=== PATIENT | female | born 1970 | race African-American/Black ===

== ENCOUNTER 2018-05-02 13:48 | Emergency (ER) | payer OTHER ==
[~2018-05-02] VITALS: Ht 160 cm; Wt 70.3 kg
[2018-05-02 14:59] VITALS: BP 130/62
[2018-05-02] MEDS ORDERED: NAPROXEN 500 MG TABLET PO STA (14:59)
[2018-05-02] MEDS ORDERED: GABAPENTIN 300 MG CAPSULE. PO STA (15:23)
--- NOTE | 2018-05-02 15:29 | PHYS DOC ---
Past Medical History Past Medical History: No Pertinent History Past Surgical History: No Surgical History Alcohol Use: None Drug Use: None Adult General Chief Complaint Chief Complaint: FINGER INJURY HPI HPI Patient is a 47 year old female with no significant medical history who presents today complaining of 9 out of 10 sharp and throbbing intermittent left middle finger pain that began yesterday. Patient denies any known swelling. She states she feels the finger is swollen. She states the pain is worse on flexion of the finger. Patient denies taking anything for her pain. Patient is right- handed. Review of Systems Review of Systems Constitutional: Denies fever or chills [] Musculoskeletal: Reports left middle finger pain and swelling. Integument: Denies rash or skin lesions [] Neurologic: Denies headache, focal weakness or sensory changes [] All other systems were reviewed and found to be within normal limits, except as documented in this note. Current Medications Current Medications Current Medications Medications (Trade) Dose Ordered Sig/Rajiv Start Time Stop Time Status Last Admin Dose Admin Acetaminophen/ Hydrocodone Bitart (Lortab 5/325) 1 tab 1X ONCE 05/02/18 15:30 05/02/18 15:31 DC 05/02/18 15:38 1 TAB Gabapentin (Neurontin) 300 mg 1X STAT 05/02/18 15:23 05/02/18 15:24 DC 05/02/18 15:38 300 MG Naproxen (Naprosyn) 500 mg 1X STAT 05/02/18 14:59 05/02/18 15:00 DC 05/02/18 15:06 500 MG Allergies Allergies Allergies Coded Allergies Type Severity Reaction Last Updated Verified No Known Drug Allergies 05/02/18 No Physical Exam Physical Exam Constitutional: Well developed, well nourished, no acute distress, non-toxic appearance. [] Skin: Warm, dry, no erythema, no rash. [] Back: No tenderness, no CVA tenderness. [] Extremities: Left middle finger with slight angulation at the PIP joint- chronic. Soft tissue swelling noted diffusely throughout the left middle finger. No tenderness on palpation of the finger. Pain elicited with range of motion especially flexion of the finger at the MIP joint. Adequate radial and media sensation to the left middle finger. +2 right radial pulse. Cap refill less than 2 seconds the left middle finger. Neurologic: Alert and oriented X 3, normal motor function, normal sensory function, no focal deficits noted. [] Psychologic: Affect normal, judgement normal, mood normal. [] Current Patient Data Vital Signs Vital Signs Date Time Temp Pulse Resp B/P (MAP) Pulse Ox O2 Delivery O2 Flow Rate FiO2 05/02/18 14:59 98.6 69 16 130/62 (84) 98 Room Air 98.6 EKG EKG [] Radiology/Procedures Radiology/Procedures []PROCEDURE: FINGER(S) LEFT History: Pain swelling of the 3rd digit beginning previous day. No known injury. Comparison: None. Findings: PA view left hand. Oblique and lateral views of the 3rd digit left hand (middle finger). No acute fracture or dislocation is identified. There is slight apex radial angulation of the 3rd PIP joint on the frontal image, of uncertain etiology or significance. Impression: 1. Mild angulation at the 3rd PIP joint. 2. No acute osseous traumatic injury identified. Electronically signed by: Mansoor Timmons MD (05/02/2018 3:33 PM) [id number] DICTATED and SIGNED BY: MANSOOR TIMMONS MD DATE: 05/02/18 1532 Course & Med Decision Making Course & Med Decision Making Pertinent Labs and Imaging studies reviewed. (See chart for details) This is a 47-year-old female patient presenting to the ED today with left middle finger pain and swelling, no known injury. Left middle finger x-rays interpreted by radiologist were negative for any acute findings, noted for mild angulation at the 3rd PIP joint. Patient was placed in a splint by the ED RN, neurovascular exam is intact, ice elevation encouraged. Diclofenac for pain. Provided orthopedic doctor for follow-up as an outpatient. Staff Physician Addendum: I was working in the ER during the course of this patient's visit. I was available for consultation as needed, but I was not directly involved in the care of this patient. Dragon Disclaimer Dragon Disclaimer This electronic medical record was generated, in whole or in part, using a voice recognition dictation system. Departure Departure Impression: Primary Impression: Finger pain, left Disposition: 01 HOME, SELF-CARE Condition: STABLE Referrals: RUPAL AMES MD (PCP) follow up in one week SALLIE HANKINS II, MD follow up in one week Patient Instructions: Finger Sprain Additional Instructions: You were evaluated in the emergency room for finger pain and swelling. Your x- rays were negative for any fractures. We put you in a splint. Ice and elevate the extremity. Follow-up with the provided orthopedic doctor in 1-2 weeks as needed. Scripts Diclofenac Sodium (DICLOFENAC SODIUM) 50 Mg Tablet.dr 1 TAB PO BID, #30 TAB 0 Refills Prov: MEHRAN ARTHUR APRN 05/02/18 MEHRAN ARTHUR APRN May 02, 2018 15:29 ANABELLE GABRIEL MD May 02, 2018 17:33
[2018-05-02] MEDS ORDERED: HYDROcodone/APAP 5/325MG 1 TAB TABLET PO ONE (15:30)
--- NOTE | 2018-05-02 15:36 | RAD ---
History: Pain swelling of the 3rd digit beginning previous day. No known injury. Comparison: None. Findings: PA view left hand. Oblique and lateral views of the 3rd digit left hand (middle finger). No acute fracture or dislocation is identified. There is slight apex radial angulation of the 3rd PIP joint on the frontal image, of uncertain etiology or significance. Impression: 1. Mild angulation at the 3rd PIP joint. 2. No acute osseous traumatic injury identified. Electronically signed by: Mansoor Zambrano MD (05/02/2018 3:33 PM) [place] [id number]
[2018-05-02] MEDS ORDERED: DICL50TA4 PO (15:49)
== END 2018-05-02 16:00 | disposition home or self-care (01) ==
LOC: ER 13:48
DX: M79.645 Pain in left finger(s) (principal); R22.32 Localized swelling, mass and lump, left upper limb
CPT/HCPCS: 29130; 73140; 99284-25

== ENCOUNTER 2018-10-30 09:24 | Emergency (ER) | payer OTHER ==
[~2018-10-30] VITALS: Ht 160 cm; Wt 72.6 kg
[~2018-10-30 09:24] MED LIST: DICL50TA4 PO
[2018-10-30 09:37] VITALS: BP 140/65
[2018-10-30 10:09] LABS: BILIRUBIN,URINE NEGATIVE (NEG); CLARITY,URINE CLEAR; COLOR,URINE YELLOW; NITRITE,URINE NEGATIVE (NEG); PH,URINE 6.5; PROTEIN,URINE NEGATIVE (NEG-TRACE); UROBILINOGEN,URINE 0.2 mg/dL (0.2 mg/dL)
[2018-10-30 10:11] LABS: BASO % 1 % (0-3); CALCIUM 9.4 mg/dL (8.5-10.1); CREATININE 0.9 mg/dL (0.6-1.0); EOS # 0.2 x10^3/uL (0.0-0.7); EOS % 4 % (0-3); GFR 66.5; HEMATOCRIT 40.1 % (36.0-47.0); LYMPH # 1.9 x10^3/uL (1.0-4.8); LYMPH % 47 % (24-48); MEAN CORPUSCULAR HEMOGLOBIN 26 pg (25-35); MEAN CORPUSCULAR HGB CONC 32 g/dL (31-37); MEAN CORPUSCULAR VOLUME 81 fL (79-100); MONO # 0.3 x10^3/uL (0.0-1.1); MONO % 7 % (0-9); NEUT # 1.7 x10^3uL (1.8-7.7); NEUT % 42 % (31-73); PLATELET COUNT 219 x10^3/uL (140-400); POTASSIUM 4.2 mmol/L (3.5-5.1); RED BLOOD COUNT 4.97 x10^6/uL (3.50-5.40); RED CELL DISTRIBUTION WIDTH 13.5 % (11.5-14.5)
[2018-10-30] MEDS ORDERED: IV NORMAL SALINE 1000ML BAG 1,000 ML IV ONE ×3 (10:15)
[2018-10-30 10:18] LABS: ALBUMIN 4.1 g/dL (3.4-5.0); ALBUMIN/GLOBULIN RATIO 1.3 (1.0-1.7); MAGNESIUM 1.8 mg/dL (1.8-2.4); TOTAL BILIRUBIN 0.2 mg/dL (0.2-1.0); TOTAL PROTEIN 7.2 g/dL (6.4-8.2)
[2018-10-30 10:26] LABS: BACTERIA,URINE 0 /HPF (0-FEW); RBC,URINE 0 /HPF (0-2); SQUAMOUS EPITHELIAL CELL,UR FEW /LPF
--- NOTE | 2018-10-30 10:38 | RAD ---
CT head and cervical spine without contrast History: Neck pain, headache, syncope last night Technique: Noncontrast CT imaging was acquired of the head and cervical spine, multiplanar reconstruction images submitted. RS Compliance Statement: One or more of the following individualized dose reduction techniques were utilized for this examination: 1. Automated exposure control 2. Adjustment of the mA and/or kV according to patient size 3. Use of iterative reconstruction technique Comparison: None Head Findings: The ventricles, sulci, and cisterns are within normal limits in size and configuration. There is no significant mass-effect, midline shift, or abnormal extra-axial fluid collection. There is no evidence of acute parenchymal or extraaxial hemorrhage. The visualized paranasal sinuses and mastoid air cells are aerated. No significant osseous abnormality is identified. There are genny bullosa bilaterally. Impression: There is no evidence of an acute intracranial abnormality. Cervical spine: Findings: Cervical vertebral body stature is maintained. Intervertebral disc spaces are maintained. There are anterior osteophytes C5. Atlantoaxial distance is within normal limits. There is adequate alignment lateral masses C1 relative to C2. Occipital condylar C1 articulation is maintained. No acute cervical spine fracture is identified. There is some minimal gas in the right lateral aspect of the spinal canal near C1 and also in the veins of the left neck as may be advertently iatrogenic such as from recent IV placement if corresponding history. Impression 1. No acute cervical spine fracture is identified.
--- NOTE | 2018-10-30 11:16 | PHYS DOC ---
Past Medical History Past Medical History: No Pertinent History Past Surgical History: No Surgical History Alcohol Use: None Drug Use: None Adult General Chief Complaint Chief Complaint: WEAKNESS/GENERALIZED HPI HPI Patient is a 48 year old female who presents to ER today for evaluation of general weakness. Patient says she got up earlier this morning to pray. She was feeling weak and tired, she felt like she lost all of her energy, she felt spent, she then fell down while she was on her knees, and hit her head on the ground, no loss of consciousness. Patient denies any other injury, no chest pain, no trouble breathing, no abdominal pain, no back pain. She felt some heart palpitation at that time but no chest pain. She denies any medical problem, she is not on any medication. She denies any recent travel, no recent operation. Her daughter is here for other medical condition. Review of Systems Review of Systems Constitutional: Denies fever or chills. Positive for generalized weakness. Eyes: Denies change in visual acuity, redness, or eye pain [] HENT: Denies nasal congestion or sore throat [] Respiratory: Denies cough or shortness of breath [] Cardiovascular: No additional information not addressed in HPI [] GI: Denies abdominal pain, nausea, vomiting, bloody stools or diarrhea [] : Denies dysuria or hematuria [] Musculoskeletal: Denies back pain or joint pain [] Integument: Denies rash or skin lesions [] Neurologic: Positive for headache, NO focal weakness or sensory changes [] Endocrine: Denies polyuria or polydipsia [] All other systems were reviewed and found to be within normal limits, except as documented in this note. Current Medications Current Medications Current Medications Medications (Trade) Dose Ordered Sig/[facility] Start Time Stop Time Status Last Admin Dose Admin Sodium Chloride 1,000 ml @ 1,000 mls/hr 1X ONCE 10/30/18 10:15 10/30/18 11:14 DC Allergies Allergies Allergies Coded Allergies Type Severity Reaction Last Updated Verified No Known Drug Allergies 05/02/18 No Physical Exam Physical Exam Constitutional: Well developed, well nourished, no acute distress, non-toxic appearance. [] HENT: Normocephalic, atraumatic, bilateral external ears normal, oropharynx moist, no oral exudates, nose normal. [] Eyes: PERRLA, EOMI, conjunctiva normal, no discharge. [] Neck: Normal range of motion, no tenderness, supple, no stridor. [] Cardiovascular:Heart rate regular rhythm, no murmur [] Lungs & Thorax: Bilateral breath sounds clear to auscultation [] Abdomen: Bowel sounds normal, soft, no tenderness, no masses, no pulsatile masses. [] Skin: Warm, dry, no erythema, no rash. [] Back: No tenderness, no CVA tenderness. [] Extremities: No tenderness, no cyanosis, no clubbing, ROM intact, no edema. [] Neurologic: Alert and oriented X 3, normal motor function, normal sensory function, no focal deficits noted. [] Psychologic: Affect normal, judgement normal, mood normal. [] Current Patient Data Vital Signs Vital Signs Date Time Temp Pulse Resp B/P (MAP) Pulse Ox O2 Delivery O2 Flow Rate FiO2 10/30/18 09:37 97.4 64 16 140/65 (90) 98 Room Air 97.4 Lab Values Laboratory Tests Test 10/30/18 09:35 10/30/18 09:47 Urine Collection Type Unknown Urine Color Yellow Urine Clarity Clear Urine pH 6.5 Urine Specific [place] 1.010 Urine Protein Negative mg/dL (NEG-TRACE) Urine Glucose (UA) Negative mg/dL (NEG) Urine Ketones (Stick) Negative mg/dL (NEG) Urine Blood Negative (NEG) Urine Nitrite Negative (NEG) Urine Bilirubin Negative (NEG) Urine Urobilinogen Dipstick 0.2 mg/dL (0.2 mg/dL) Urine Leukocyte Esterase Trace (NEG) Urine RBC 0 /HPF (0-2) Urine WBC 1-4 /HPF (0-4) Urine Squamous Epithelial Cells Few /LPF Urine Bacteria 0 /HPF (0-FEW) White Blood Count 4.0 x10^3/uL (4.0-11.0) Red Blood Count 4.97 x10^6/uL (3.50-5.40) Hemoglobin 13.0 g/dL (12.0-15.5) Hematocrit 40.1 % (36.0-47.0) Mean Corpuscular Volume 81 fL (79-100) Mean Corpuscular Hemoglobin 26 pg (25-35) Mean Corpuscular Hemoglobin Concent 32 g/dL (31-37) Red Cell Distribution Width 13.5 % (11.5-14.5) Platelet Count 219 x10^3/uL (140-400) Neutrophils (%) (Auto) 42 % (31-73) Lymphocytes (%) (Auto) 47 % (24-48) Monocytes (%) (Auto) 7 % (0-9) Eosinophils (%) (Auto) 4 % (0-3) H Basophils (%) (Auto) 1 % (0-3) Neutrophils # (Auto) 1.7 x10^3uL (1.8-7.7) L Lymphocytes # (Auto) 1.9 x10^3/uL (1.0-4.8) Monocytes # (Auto) 0.3 x10^3/uL (0.0-1.1) Eosinophils # (Auto) 0.2 x10^3/uL (0.0-0.7) Basophils # (Auto) 0.0 x10^3/uL (0.0-0.2) Sodium Level 146 mmol/L (136-145) H Potassium Level 4.2 mmol/L (3.5-5.1) Chloride Level 109 mmol/L (98-107) H Carbon Dioxide Level 26 mmol/L (21-32) Anion Gap 11 (6-14) Blood Urea Nitrogen 9 mg/dL (7-20) Creatinine 0.9 mg/dL (0.6-1.0) Estimated GFR (Cockcroft-Gault) 66.5 BUN/Creatinine Ratio 10 (6-20) Glucose Level 90 mg/dL (70-99) Calcium Level 9.4 mg/dL (8.5-10.1) Magnesium Level 1.8 mg/dL (1.8-2.4) Total Bilirubin 0.2 mg/dL (0.2-1.0) Aspartate Amino Transferase (AST) 20 U/L (15-37) Alanine Aminotransferase (ALT) 17 U/L (14-59) Alkaline Phosphatase 70 U/L (46-116) Troponin I Quantitative < 0.017 ng/mL (0.000-0.055) Total Protein 7.2 g/dL (6.4-8.2) Albumin 4.1 g/dL (3.4-5.0) Albumin/Globulin Ratio 1.3 (1.0-1.7) Laboratory Tests 10/30/18 09:47 Laboratory Tests 10/30/18 09:47 EKG EKG EKG WAS READ BY THIS PHYSICIAN AT 10AM, RATE OF 57 BPM, SINUS BRADYCARDIA, NO STEMI. Radiology/Procedures Radiology/Procedures [][facility] [address] [place] [address] IMAGING REPORT Signed PATIENT: JIMMY VARELA ACCOUNT: [id number] : 1970 LOCATION: ER AGE: 48 SEX: F EXAM STATUS: REG ER ORD. PHYSICIAN: LIOR RENDON DO REASON: had a syncope last night, headache, neck pain PROCEDURE: CT HEAD AND CERVICAL SPINE WO CT head and cervical spine without contrast History: Neck pain, headache, syncope last night Technique: Noncontrast CT imaging was acquired of the head and cervical spine, multiplanar reconstruction images submitted. PQRS Compliance Statement: One or more of the following individualized dose reduction techniques were utilized for this examination: 1. Automated exposure control 2. Adjustment of the mA and/or kV according to patient size 3. Use of iterative reconstruction technique Comparison: None Head Findings: The ventricles, sulci, and cisterns are within normal limits in size and configuration. There is no significant mass-effect, midline shift, or abnormal extra-axial fluid collection. There is no evidence of acute parenchymal or extraaxial hemorrhage. The visualized paranasal sinuses and mastoid air cells are aerated. No significant osseous abnormality is identified. There are genny bullosa bilaterally. Impression: There is no evidence of an acute intracranial abnormality. Cervical spine: Findings: Cervical vertebral body stature is maintained. Intervertebral disc spaces are maintained. There are anterior osteophytes C5. Atlantoaxial distance is within normal limits. There is adequate alignment lateral masses C1 relative to C2. Occipital condylar C1 articulation is maintained. No acute cervical spine fracture is identified. There is some minimal gas in the right lateral aspect of the spinal canal near C1 and also in the veins of the left neck as may be advertently iatrogenic such as from recent IV placement if corresponding history. Impression 1. No acute cervical spine fracture is identified. DICTATED and SIGNED BY: ALEXIA WHITTINGTON MD DATE: 10/30/18 1025 Course & Med Decision Making Course & Med Decision Making Pertinent Labs and Imaging studies reviewed. (See chart for details) [] Dragon Disclaimer Dragon Disclaimer This electronic medical record was generated, in whole or in part, using a voice recognition dictation system. Departure Departure Impression: Primary Impression: Weakness Disposition: 01 HOME, SELF-CARE Condition: IMPROVED Referrals: UNKNOWN PCP NAME (PCP) FOLLOW UP WITH YOUR DOCTOR ON WEDNESDAY FOR REEVALUATION. Patient Instructions: LIOR Asif DO Oct 30, 2018 11:16
--- NOTE | 2018-10-31 07:28 | EKG ---
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
== END 2018-10-30 11:55 | disposition home or self-care (01) ==
LOC: ER 09:24
DX: S09.90XA Unspecified injury of head, initial encounter (principal); R53.1 Weakness; R55 Syncope and collapse; M54.2 Cervicalgia; W18.39XA Other fall on same level, initial encounter; Y93.89 Activity, other specified; Y92.89 Other specified places as the place of occurrence of the external cause; Y99.8 Other external cause status
CPT/HCPCS: 36415; 70450; 72125; 80053; 81001; 83735; 84484; 85025; 87086; 93005; 96360; 99285; J7030

== ENCOUNTER 2020-10-04 17:49 | Emergency (ER) | payer OTHER ==
[~2020-10-04] VITALS: Ht 160 cm; Wt 77.2 kg
[~2020-10-04 17:49] MED LIST changes: +AZIT250T6 PO; +BENZ100C PO; +METH4TAB2 PO
[2020-10-04 18:43] LABS: BASO # 0.1 x10^3/uL (0.0-0.2); BASO % 1 % (0-3); EOS # 0.1 x10^3/uL (0.0-0.7); EOS % 1 % (0-3); HEMATOCRIT 39.1 % (36.0-47.0); HEMOGLOBIN 12.8 g/dL (12.0-15.5); LYMPH # 2.4 x10^3/uL (1.0-4.8); LYMPH % 39 % (24-48); MEAN CORPUSCULAR HEMOGLOBIN 27 pg (25-35); MEAN CORPUSCULAR HGB CONC 33 g/dL (31-37); MEAN CORPUSCULAR VOLUME 81 fL (79-100); MONO # 0.4 x10^3/uL (0.0-1.1); MONO % 7 % (0-9); NEUT # 3.2 x10^3/uL (1.8-7.7); NEUT % 52 % (31-73); PLATELET COUNT 213 x10^3/uL (140-400); RED BLOOD COUNT 4.84 x10^6/uL (3.50-5.40); RED CELL DISTRIBUTION WIDTH 14.1 % (11.5-14.5); WHITE BLOOD COUNT 6.2 x10^3/uL (4.0-11.0)
--- NOTE | 2020-10-04 18:56 | PHYS DOC ---
Past Medical History Past Medical History: No Pertinent History Past Surgical History: No Surgical History Smoking Status: Never Smoker Alcohol Use: None Drug Use: None General Adult EDM: Chief Complaint: DIZZY/LIGHT HEADED HPI: HPI: Patient is a 50 year old female who is on no prescription medications presents with the chief complaint of dizziness. Patient states she has had previous episodes in the past. Current episodes x 3 days. Dizziness described as room spinning. Worse with movement of head and sitting up. Associated nausea and blurry vision. All symptoms Improved with remaining still. States she had same dizzy episodes in the past-- presented to ER and treated with medications that resolved dizziness. Review of Systems: Review of Systems: Constitutional: Denies fever or chills. [] Eyes: Denies change in visual acuity. [] HENT: Denies nasal congestion or sore throat. [] Respiratory: Denies cough or shortness of breath. [] Cardiovascular: Denies chest pain or edema. [] GI: Denies abdominal pain, positive nausea, denies vomiting, bloody stools or diarrhea. [] : Denies dysuria. [] Musculoskeletal: Denies back pain or joint pain. [] Integument: Denies rash. [] Neurologic: Denies headache, focal weakness or sensory changes. [positive dizziness, positive blurry vision] Endocrine: Denies polyuria or polydipsia. [] Lymphatic: Denies swollen glands. [] Psychiatric: Denies depression or anxiety. [] Heart Score: C/O Chest Pain: N/A Risk Factors: Risk Factors: DM, Current or recent (<one month) smoker, HTN, HLP, family history of CAD, obesity. Risk Scores: Score 0 - 3: 2.5% MACE over next 6 weeks - Discharge Home Score 4 - 6: 20.3% MACE over next 6 weeks - Admit for Clinical Observation Score 7 - 10: 72.7% MACE over next 6 weeks - Early Invasive Strategies Allergies: Allergies: Allergies Coded Allergies Type Severity Reaction Last Updated Verified No Known Drug Allergies 05/02/18 No Physical Exam: PE: Constitutional: Well developed, well nourished, no acute distress, non-toxic appearance. [] HENT: Normocephalic, atraumatic, bilateral external ears normal, oropharynx moist, no oral exudates, nose normal. [] Eyes: PERRLA, EOMI, conjunctiva normal, no discharge. [] Neck: Normal range of motion, no tenderness, supple, no stridor. [] Cardiovascular:Heart rate regular rhythm, no murmur [] Lungs & Thorax: Bilateral breath sounds clear to auscultation [] Abdomen: Bowel sounds normal, soft, no tenderness, no masses, no pulsatile masses. [] Skin: Warm, dry, no erythema, no rash. [] Back: No tenderness, no CVA tenderness. [] Extremities: No tenderness, no cyanosis, no clubbing, ROM intact, no edema. [] Neurologic: Alert and oriented X 3, normal motor function, normal sensory function, no focal deficits noted. [] Psychologic: Affect normal, judgement normal, mood normal. [] Current Patient Data: Labs: Laboratory Tests Test 10/04/20 18:35 White Blood Count 6.2 x10^3/uL (4.0-11.0) Red Blood Count 4.84 x10^6/uL (3.50-5.40) Hemoglobin 12.8 g/dL (12.0-15.5) Hematocrit 39.1 % (36.0-47.0) Mean Corpuscular Volume 81 fL (79-100) Mean Corpuscular Hemoglobin 27 pg (25-35) Mean Corpuscular Hemoglobin Concent 33 g/dL (31-37) Red Cell Distribution Width 14.1 % (11.5-14.5) Platelet Count 213 x10^3/uL (140-400) Neutrophils (%) (Auto) 52 % (31-73) Lymphocytes (%) (Auto) 39 % (24-48) Monocytes (%) (Auto) 7 % (0-9) Eosinophils (%) (Auto) 1 % (0-3) Basophils (%) (Auto) 1 % (0-3) Neutrophils # (Auto) 3.2 x10^3/uL (1.8-7.7) Lymphocytes # (Auto) 2.4 x10^3/uL (1.0-4.8) Monocytes # (Auto) 0.4 x10^3/uL (0.0-1.1) Eosinophils # (Auto) 0.1 x10^3/uL (0.0-0.7) Basophils # (Auto) 0.1 x10^3/uL (0.0-0.2) Laboratory Tests 10/04/20 18:35 Vital Signs: Vital Signs Date Time Temp Pulse Resp B/P (MAP) Pulse Ox O2 Delivery O2 Flow Rate FiO2 10/04/20 18:24 97.6 81 20 163/84 (110) 98 Room Air 97.6 EKG: EKG: EKG 1944hrs HR 59 no acute ischemic changes[] Radiology/Procedures: Radiology/Procedures: [] Impression: COMPARISON: 10/30/2018. FINDINGS: There is no intracranial hemorrhage. Ramachandran-white differentiation is preserved. The ventricles are normal in size and position. The visualized paranasal sinuses appear clear. The orbits are unremarkable. There is moderate fluid within the right mastoid air cells. The calvarium reveals no suspicious lesions. IMPRESSION: 1. No acute intracranial findings. Electronically signed by: Pedro Saucedo MD (10/04/2020 7:19 PM) [facility] Course & Med Decision Making: Course & Med Decision Making Pertinent Labs and Imaging studies reviewed. (See chart for details) []Reviewed all results -- CT and labs with patient. When reviewing results patient had not received Meclizine. Patient was treated with meclzine while in room with patient discussing results. Patient was observed post treatment. 2044-- Patient complained of headache. Tylenol was ordered. Patient requested to be discharged. All results again discussed with patient. Patient declined Tylenol. She had no questions regarding workup. Patient ambulated out out of the ER with steady gait. Eloy Disclaimer: Eloy Disclaimer: This electronic medical record was generated, in whole or in part, using a voice recognition dictation system. Departure Departure Impression: Primary Impression: Dizziness Disposition: 01 DC HOME SELF CARE/HOMELESS Condition: STABLE Referrals: UNKNOWN PCP NAME (PCP) Patient Instructions: Dizziness Scripts Meclizine Hcl (MECLIZINE HCL) 25 Mg Tablet 1 TAB PO PRN TID, #30 TAB Prov: VINAYAK MORALES DO 10/04/20 VINAYAK MORALES DO Oct 04, 2020 18:56
[2020-10-04 18:58] LABS: GFR 58.5; POTASSIUM 3.8 mmol/L (3.5-5.1)
[2020-10-04 19:04] LABS: ALBUMIN 3.9 g/dL (3.4-5.0); ALBUMIN/GLOBULIN RATIO 1.2 (1.0-1.7); TOTAL BILIRUBIN 0.1 mg/dL (0.2-1.0); TOTAL PROTEIN 7.1 g/dL (6.4-8.2)
--- NOTE | 2020-10-04 19:22 | RAD ---
EXAM: CT HEAD WITHOUT CONTRAST. HISTORY: Dizziness. TECHNIQUE: Computed tomography of the head was performed without intravenous contrast. One or more of the following individualized dose reduction techniques were utilized for this examination: 1. Automated exposure control. 2. Adjustment of the mA and/or kV according to patient size. 3. Use of iterative reconstruction technique. COMPARISON: 10/30/2018. FINDINGS: There is no intracranial hemorrhage. Ramachandran-white differentiation is preserved. The ventricle s are normal in size and position. The visualized paranasal sinuses appear clear. The orbits are unremarkable. There is moderate fluid w ithin the right mastoid air cells. The calvarium reveals no suspicious lesions. IMPRESSION: 1. No acute intracranial findings. Electronically signed by: Pedro Saucedo MD (10/04/2020 7:19 PM) [facility]
[2020-10-04] MEDS ORDERED: MECLIZINE HCL 12.5 MG TABLET. PO ONE (19:30)
[2020-10-04] MEDS ORDERED: MECL-75 PO (19:49)
[2020-10-04 20:30] VITALS: BP 142/77
--- NOTE | 2020-10-04 20:42 | EKG ---
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
[2020-10-04] MEDS ORDERED: ACETAMINOPHEN 325 MG TABLET. PO ONE (21:00)
== END 2020-10-04 20:58 | disposition home or self-care (01) ==
LOC: ER 17:49
DX: R42 Dizziness and giddiness (principal); R11.0 Nausea; H53.8 Other visual disturbances; R51.9 Headache, unspecified
CPT/HCPCS: 36415; 70450; 80053; 84484; 85025; 93005; 99285; J8597